=== PATIENT | female | born 1945 | race African-American/Black ===

== ENCOUNTER → 2016-10-26 | Outpatient (CLI) | payer MEDICARE ==
--- NOTE | 2016-10-26 10:58 | RAD ---
EXAM: BREAST LEFT, DIGITAL DIAGNOSTIC LT. HISTORY: Palpable lump in the far posterior left breast 6 days ago. COMPARISON: Outside mammograms 08/24/2016 and 08/17/2015. FINDINGS: Digital mammography was performed. Computer-aided detection (CAD) was utilized. CC and MLO views of the left breast were obtained. A marker was placed in the far posterior left breast at approximately 12:00, 12 cm from the nipple. Even with aggressive attempts to visualize the area of interest, only a portion of the mass is visualized. Incompletely seen is an irregular dense mass in the far posterior left breast. Mass is estimated to measure about 2 cm in maximum dimension. Given its far posterior location, it is possible that this location was not included on previous mammography. Further evaluation was performed with ultrasound. Ultrasound imaging was performed of left breast by interventional radiology technologist. Within the left breast at 11:30, 9-10 cm from nipple, there is a microlobulated, regular hypoechoic mass with internal vascularity. No convincing shadowing is identified. The mass measures 1.9 x 1.4 x 1.7 cm. Mass is adjacent to the chest wall. Additional imaging was performed of the left axilla. 2 left axillary lymph nodes are seen which are without focal cortical thickening. Maximum cortical thickness is 2 mm, within normal limits. These lymph nodes retain their fatty constantine. IMPRESSION: 1. Palpable lump corresponds to a hypoechoic, microlobulated mass with irregular margins. Mass is located adjacent to the chest wall at 11:30, 9-10 cm from the nipple; measures 1.9 x 1.4 x 1.7 cm; and demonstrates internal vascularity. Tissue diagnosis is recommended. This should be amenable to ultrasound-guided needle core biopsy. 2. A voicemail message was left with nursing staff of referring physician, Dr. Dockery, on the morning of 10/26/2016. BI-RADS CATEGORY: 4 SUSPICIOUS ABNORMALITY- BIOPSY SHOULD BE CONSIDERED RECOMMENDED FOLLOW-UP: BIO BIOPSY RECOMMENDED PQRS compliance statement: Patient information was entered into a reminder system with a target due date for the next mammogram. Mammography is a sensitive method for finding small breast cancers, but it does not detect them all and is not a substitute for careful clinical examination. A negative mammogram does not negate a clinically suspicious finding and should not result in delay in biopsying a clinically suspicious abnormality. "Our facility is accredited by the [employer] Mammography Program."
== END | disposition home or self-care (01) ==
LOC: KCIC MAMMO 09:52
PROVIDERS: ATTEND Family Medicine
DX: R92.8 Other abnormal and inconclusive findings on diagnostic imaging of breast (principal); N63 Unspecified lump in breast
CPT/HCPCS: 76641; G0206; 77051

== ENCOUNTER → 2016-11-02 | Outpatient (CLI) | payer MEDICARE ==
[~2016-11-02] VITALS: Ht 172.7 cm; Wt 71.2 kg
[~2016-11-02] MED LIST: ASPI-482 PO; CALC-584 PO; DILT120C97 PO; FISH1CAP PO; METF850T2 PO; MULT1TAB52 PO
--- NOTE | 2016-11-03 14:57 | RAD ---
Indication mass left breast suspect for malignancy. Note is made of recent diagnostic imaging, October 26, 2016, targeted to the left breast. Those examinations demonstrated a mass at the 11:30 position of the breast suspect for malignancy. Image guided biopsy was discussed with the patient. The risks of infection and bleeding were outlined. The possibility of pneumothorax was also discussed. The patient understood the risks associated with the procedure and wished to proceed. Preliminary ultrasound images were obtained. The known mass was reproduced. Lead Mechanical Engineer images were saved. The skin was prepped and draped in the routine fashion. Local anesthesia was accomplished with 1% lidocaine. A 14-gauge coaxial biopsy system was utilized. Under ultrasound guidance 4 core samples were obtained. Following the biopsy a clip was deployed within the mass. All tissue retrieved was placed in formaldehyde and transferred to pathology. Following the biopsy and clip deployment conventional mammographic images were obtained. The clip could be seen positioned within the target mass on the MLO view but the mass is very close to the chest wall and cannot be imaged imaged on the CC view. Subsequently a very limited CT examination was performed. Thin images were obtained through the mass. The clip can be seen centrally positioned in the mass on image 138 series 3. IMPRESSION: Successful ultrasound-guided biopsy mass left breast MTDD
--- NOTE | 2016-11-03 16:33 | PATHOLOGY ---
PATHOLOGY REPORT * * * * * * * * FINAL DIAGNOSIS: Breast tissue, left breast mass core biopsies: - INVASIVE HIGH GRADE DUCTAL CARCINOMA. See comment. COMMENT: Sections of the left breast mass core biopsy reveal segments of breast tissue showing an invasive high grade ductal carcinoma. The tumor shows little tubule formation, marked nuclear pleomorphism, and prominent mitotic activity. The tumor is associated with a reactive, chronically inflamed, desmoplastic stroma. The tumor measures up to 1.1 cm in greatest dimension on the glass slide. There are no tumor associated calcifications. There is no lymphovascular tumor invasion. The results are examined by Dr. Catalino Blair who concurs with the diagnosis. Breast prognostic studies will be obtained, the results of which will be reported separately. (JPM:csd; d/t: 11/03/2016) PROCEDURE REPORT (Order Date: 11/03/2016 00:00) INTERPRETATION: Quantitative image analysis was performed on block A1. Please see next page for scanned image of results. COMMENT: PATHOLOGIST: Woody Damon M.D. REPORT ELECTRONICALLY SIGNED BY: Woody Damon M.D. DATE/TIME: 11/10/2016 10:46 REPORT ELECTRONICALLY SIGNED BY: Chris Burns M.D. DATE/TIME: 11/03/2016 16:32 * * * * * * * * GROSS PATHOLOGY: Received in formalin labeled "Gissell Jean and left breast," are several needle cores of yellow-hsieh fibrofatty tissue measuring 1.8 x 0.5 x 0.3 cm in aggregate dimensions. The tissue is submitted in its entirety in cassette A1. The cold ischemic time is 5 minutes. The total formalin fixation time is 8 hours and 55 minutes. (TTL; 11/02/2016) INITIAL CPT CODE(S): A; 83883, 08789(4) Professional services performed by [facility] at [address] [address] Technical services performed by [facility] at [address] [place] [address], [address], [place] [address]. SPECIMEN(S) RECEIVED: A.Left breast mass CLINICAL HISTORY: Left breast mass PATIENT: GISSELL JEAN /AGE: 110/27/1945 (Age: 71) PATIENT #: [id number] ALT CASE #: SPECIMEN COLLECTION DATE: 11/02/2016 SPECIMEN RECEIVED DATE: 11/02/2016 [facility] - [address] [place] [address] - PHONE: [phone] * * * END OF REPORT * * *
== END | disposition home or self-care (01) ==
LOC: US 11:28
PROVIDERS: ATTEND Surgery
DX: R92.8 Other abnormal and inconclusive findings on diagnostic imaging of breast (principal); E11.9 Type 2 diabetes mellitus without complications; C50.912 Malignant neoplasm of unspecified site of left female breast
CPT/HCPCS: 19081; 71250; 76942; 88305; 88361; C1713; G0206; 77065

== ENCOUNTER → 2016-11-24 | Outpatient (CLI) | payer MEDICARE ==
--- NOTE | 2016-11-24 14:13 | RAD ---
Indication known malignancy. Assess size. Anticipated neoadjuvant chemotherapy. Targeted ultrasound of the left breast, to the known mass at the 11:30 position was performed. Comparison is made to a limited ultrasound examination 10/26/2016. Known mass persists and now measures approximately 1.74 cm x 2.3 1.6 cm which is slightly larger than on the previous exam. (Previous measurements were approximately 1.67 x 1.86 x 1.4). IMPRESSION: Known malignancy in the left breast slightly larger than on the study one month earlier
== END | disposition home or self-care (01) ==
LOC: US 15:28
PROVIDERS: ATTEND Internal Medicine Hematology & Oncology
DX: C50.912 Malignant neoplasm of unspecified site of left female breast (principal); N63 Unspecified lump in breast
CPT/HCPCS: 76641

== ENCOUNTER 2017-05-22 07:02 | Observation (INO) | payer BC ==
[~2017-05-22] VITALS: Ht 170.2 cm; Wt 73.5 kg
[2017-05-22] VITALS (8 sets, daily range): BP systolic 93–120; BP diastolic 35–61
[~2017-05-22 07:02] MED LIST changes: +DILT120C80 PO; -DILT120C97 PO; +IV RINGERS,LACTATED 1000ML 1,000 ML IV SCH; +LIDOCAINE 1% 1 ML SYRINGE. ID PRN; +ONDANSETRON PF 4 MG/2 ML VIAL. IV PRN; +PROCHLORPERAZINE 10 MG/2 ML VIAL. IV PRN
[2017-05-22] MEDS ORDERED: ISOSULFAN BLUE 50 MG/5 ML VIAL. SQ ONE (07:08)
[2017-05-22] MEDS ORDERED: PROPOFOL 20 ML IV ONE ×2 (07:34→11:39)
[2017-05-22] MEDS ORDERED: fentaNYL PF VIAL 100 MCG/2 ML VIAL ONE ×3 (07:34→12:12)
[2017-05-22] MEDS ORDERED: SUCCINYLCHOLINE 200 MG/10 ML VIAL. ONE (07:34)
[2017-05-22] MEDS ORDERED: LIDOCAINE 2% PF Vial for OR 5 ML VIAL. ONE ×2 (07:34→11:39)
[2017-05-22] MEDS ORDERED: LIDOCAINE 1% / SOD BICARB 8.4% 20 ML VIAL. IJ ONE (08:30)
[2017-05-22] MEDS ORDERED: SCOPOLAMINE 1.5MG PATCH. TD ONE (08:52)
[2017-05-22] MEDS ORDERED: DESFLURANE > 120 MINUTES IH ONE (09:17)
[2017-05-22] MEDS ORDERED: FAMOTIDINE 20 MG/2 ML VIAL ONE (09:17)
[2017-05-22] MEDS ORDERED: DEXAMETHASONE SOD PHOS 20 MG/5 ML VIAL. ONE (09:17)
[2017-05-22] MEDS ORDERED: PHENYLEPHRINE 10 MG/ML VIAL. ONE (09:31)
--- NOTE | 2017-05-22 10:03 | RAD ---
Indication established left breast malignancy. Anticipated sentinel node biopsy. Lymphoscintigraphy, in anticipation of sentinel node biopsy, was explained to the patient. The left nipple and periareolar area were cleansed. 0.9 mCi of filtered technetium sulfur colloid was injected about the left nipple at the 12, 3, 6 and 9:00 positions. No images were obtained. IMPRESSION: Lymphoscintigraphy in anticipation of sentinel node biopsy
[2017-05-22] MEDS ORDERED: ONDANSETRON PF 4 MG/2 ML VIAL. ONE (10:29)
[2017-05-22] MEDS ORDERED: PROCHLORPERAZINE 10 MG/2 ML VIAL. ONE (12:11)
--- NOTE | 2017-05-22 12:22 | PDOC4 ---
Operative Note Operative Note Operative Note: Preoperative Diagnosis: Left breast cancer Postoperative Diagnosis: Same Procedure: Left simple mastectomy with sentinel lymph node biopsy, right simple mastectomy Surgeon: Willis Supervisor [place]: Merry FUNK Anesthesia: Gen. EBL: 100 mL Specimen: Left axillary sentinel lymph node 1, 2 to pathology; left breast to pathology; right breast pathology Drains: 19 Greenlandic round Wes drain X 2 to bilateral chest wall Complications: None Indication: The patient is a 71-year-old female who was diagnosed with left breast cancer. She was placed on a clinical trial and underwent neoadjuvant chemotherapy. In discussion with her on surgical options she strongly prefers a bilateral mastectomy. In addition she is not interested in reconstruction at this time. I discussed with her the details and risks of surgery. The risks include bleeding, infection, scar tissue, pain, anesthesia risk, potential need for additional surgery or procedure. She understands and would like to proceed. Description: The patient was taken to the operating room after injection of technetium sulfur colloid in nuclear medicine. She was placed supine on the operating table. Gen. anesthesia was performed. The bilateral breasts and axilla were prepped with ChloraPrep and draped in a standard surgical manner. We began on the left side initially. Five mL of Lymphazurin were injected deep to the nipple areolar complex. Several minutes were allowed to elapse. Elliptical markings were made on both sides of the chest for the planned mastectomies. We began initially by opening the lateral superior portion of the elliptical marking on the left side. Cautery dissection was then carried down toward the axillary contents. Using the radio guided probe there was one area of moderate increased nuclear uptake in the left axilla. This did correspond to a blue staining lymph node which appeared of generous size but was soft. This lymph node was mobilized from the surrounding tissues and sent to pathology. There were no other areas of increased nuclear uptake following excision of this node. There was however an additional blue staining node which was fairly small. This was also mobilized and sent to pathology. Frozen section evaluation of both lymph nodes was negative for metastatic involvement. There were no other blue staining lymph nodes or palpable lymphadenopathy in the remaining axilla. We then proceeded with the mastectomy. With a scalpel the skin incision was made following the elliptical tracing initially on the left side. The superior and inferior flaps were both developed using cautery. The skin was from the deeper breast parenchyma. Superiorly the dissection was carried the level just below the clavicle. Inferiorly the dissection included the inframammary fold to the level of the upper torso. In a medial to lateral fashion the left breast was taken off the chest wall. Care was taken to ensure removal of the axillary tail of Mas. A stitch was used to michaela the 12 o' clock position and the left breast was sent to pathology. Hemostasis was readily achieved with cautery and the wound was packed with sterile gauze and covered with a sterile towel. We then directed our attention to the right breast. In a similar manner an elliptical incision was made at the site of her prior marking. The skin flaps were developed in a similar manner superiorly and inferiorly. The right breast was then taken off the chest wall medial to lateral fashion. A stitch michaela the 12 o'clock position and it was sent to pathology for evaluation. Hemostasis was readily achieved with cautery. 19 Greenlandic round Wes drains were placed in both sides of the chest. The drains exited inferiorly and was secured to the skin with 2-0 silk. The subcutaneous tissue of both sides was approximated with interrupted 3-0 Vicryl. The skin was then closed with a running 4-0 Monocryl suture. A sterile OpSite dressing was then applied. The patient tolerated the procedure well and was sent to the recovery room in stable condition. At the end of the case all counts were correct. ORESTES LINDSAY MD May 22, 2017 12:22
[2017-05-22] MEDS: fentaNYL PF VIAL 100 MCG/2 ML VIAL IV PRN ×4 (12:27→13:34)
[2017-05-22] MEDS ORDERED: HYDROmorphone 2 MG/ML VIAL IV PRN (12:30)
[2017-05-22] MEDS ORDERED: 0.9 % SODIUM CHLORIDE 10 ML DISP.SYRIN. IV PRN (12:30)
[2017-05-22] MEDS ORDERED: HYDROcodon/IBUPROFEN 7.5/200MG 1 TAB TABLET PO PRN (12:30)
[2017-05-22] MEDS ORDERED: ONDANSETRON PF 4 MG/2 ML VIAL. IV PRN (12:30)
[2017-05-22] MEDS: IV 1/2 NORMAL SALINE 1,000 ML IV SCH (13:00)
[2017-05-22] MEDS: metFORMIN 850 MG TABLET PO SCH (13:00)
[2017-05-22] MEDS ORDERED: PROMETHAZINE 12.5 MG in IV NORMAL SALINE 50ML 50 ML IV PRN (14:45)
[2017-05-23] MEDS: IV 1/2 NORMAL SALINE 1,000 ML IV SCH (02:57)
[2017-05-23 03:33] VITALS: BP 122/53
[2017-05-23 07:00] VITALS: BP 103/55
[2017-05-23] MEDS ORDERED: MULTIVITAMIN with MINERAL TABLET. PO SCH (09:00)
[2017-05-23] MEDS ORDERED: ASPIRIN ENTERIC COATED 81 MG TABLET.DR. PO SCH (09:00)
[2017-05-23] MEDS: metFORMIN 850 MG TABLET PO SCH (10:04)
[2017-05-23 11:00] VITALS: BP 127/60
--- NOTE | 2017-05-23 11:21 | DISCH ---
DISCHARGE INSTRUCTIONS Condition on Discharge Condition on Discharge: Stable Activity After Discharge Activity Instructions for Disc: Activity as tolerated, Avoid exertion Lifting Instructions after Dis: No heavy lifting Driving Instructions after Dis: Do not drive Diet after Discharge Diet after Discharge: Regular Wound Incision Care Wound/Incision Care: Ice to area for comfort Other wound/incision instructi: record drain outputs Follow-Up Follow up with: Office on Friday 05/25 with MARY LOU output totals DONALDO CASTELLANO MD May 23, 2017 11:21
--- NOTE | 2017-05-25 17:22 | PATHOLOGY ---
PATHOLOGY REPORT * * * * * * * * FINAL DIAGNOSIS: A. Lymph node, sentinel lymph node #1: - Negative for tumor (0/1). B. Lymph node, sentinel lymph node #2: - Negative for tumor (0/1). C. Left breast, simple mastectomy: - Previous biopsy site showing scarring, chronic inflammation, and focal hemosiderin laden macrophages-no residual invasive carcinoma identified. - Deep margin of resection negative for tumor. - No lymphovascular tumor invasion identified. - Nipple negative for tumor. - Stromal fibrosis and mild duct ectasia. D. Right breast, simple mastectomy: - Negative for tumor. - Patchy stromal fibrosis and mild duct ectasia. CLINICAL Clinical History: Other: Breast mass. Prior presurgical (neoadjuvant) therapy for this diagnosis of invasive carcinoma Radiologic Finding: Mass or architectural distortion SPECIMEN Procedure: Other: Simple mastectomy. Lymph Node Sampling: Angelica lymph node(s) Specimen Laterality: Left TUMOR Primary Tumor Site: Invasive Carcinoma: Not specified Presence of Invasive Carcinoma: No residual invasive carcinoma Ductal Carcinoma In Situ (DCIS): No DCIS is present Lobular Carcinoma In Situ (LCIS): Not identified Tumor Size / Focality: No residual invasive carcinoma Accessory Tumor Findings Lymph-Vascular Invasion: Not identified Dermal Lymph-Vascular Invasion: Not identified Microcalcifications: Not identified Treatment Effect: Response to Presurgical (Neoadjuvant) Therapy: In the Breast: No residual invasive carcinoma is present in the breast after presurgical therapy In the Lymph Nodes: No lymph node metastases and no prominent fibrous scarring in the nodes MARGINS Invasive Carcinoma: Margins uninvolved by invasive carcinoma Distance from Closest Margin: Cannot be assessed: No residual invasive carcinoma. Closest Uninvolved Margin: Cannot be determined: No residual invasive carcinoma. Ductal Carcinoma In Situ (DCIS): DCIS not present in specimen LYMPH NODES Regional Lymph Nodes: Angelica lymph node biopsy performed Number of Angelica Nodes Examined: Specify number: 2 Method of Evaluation of Angelica Lymph Node(s): Hematoxylin and eosin (H-E), one level Immunohistochemistry Number of Lymph Node(s) Examined (sentinel and nonsentinel): Specify number: 2 STAGE (PTNM) TNM Descriptors: y (post-treatment) Primary Tumor (Invasive Carcinoma) (pT): pT0: No evidence of primary tumor # Category (pN): pN0 (i-): No regional lymph node metastases histologically, negative IHC ADDITIONAL FINDINGS Additional Pathologic Findings: See diagnoses. COMMENT: Sections of the left simple mastectomy show scaring, chronic inflammation and focal hemosiderin laden macrophages in the region of the previous biopsy site. There is no residual invasive ductal carcinoma. There are two sentinel lymph nodes examined. Immunoperoxidase stains for AE1/AE3 are obtained on the sentinel lymph nodes and yield the following results. AE1/AE3 (A1): negative for tumor AE1/AE3 (B1): negative for tumor (JPM:mgr; 05/24/2017) REPORT ELECTRONICALLY SIGNED BY: Chris Burns M.D. DATE/TIME: 05/25/2017 17:21 * * * * * * * * GROSS PATHOLOGY: A. The specimen is received fresh for intraoperative consultation and is designated "sentinel lymph node #1." This consists of an ovoid shaped segment of yellow fatty tissue measuring up to 3.0 cm in length and 1.8 cm in width. There is focal bluish discoloration externally. Sectioning reveals a pinkish brown lymph node with central fatty replacement measuring up to approximately 2.2 cm in greatest dimension. There is focal bluish discoloration. This is submitted for frozen section as FSA1. The tissue remaining from frozen section is submitted for permanent sections as A1. B. The specimen is received fresh for intraoperative consultation and is designated "sentinel lymph node #2." This consists of an ovoid shaped segment of yellow fatty tissue measuring up to 2.1 cm in greatest dimension. Sectioning reveals an eccentric yellowish appearing lymph node showing focal bluish discoloration. This is submitted for frozen section as FSB1. The tissue remaining from frozen section is submitted for permanent sections as B1. (JPM:mgr; 05/22/2017) C. The specimen is received in formalin, labeled "Gissell Jean, left breast stitch at 12:00" is a simple mastectomy specimen consisting of an ellipse of skin containing nipple/areolar complex and underlying breast tissue. The specimen weighs 987 g and measures 23.6 x 20.7 x 5.8 cm. A freely movable nipple is identified measuring 1.2 x 1.0 x 0.3 cm. Surrounding the nipple is an areola measuring 4.5 cm in diameter. The structures are centered in a gibbons-brown ellipse of skin measuring 20.1-11.1 cm. Centered along the upper edge is a black suture designating the 12 o'clock position. Along the lateral aspect of the areole, the skin has been previously injected with a blue-green ink. Prior to sectioning the anterior surface is inked blue and the deep surface is inked black. Sectioning reveals an irregular area of scarring and puckering in the upper outer quadrant measuring 2.0 x 1.6 x 0.8 cm. This area extends to within 0.2 cm of the deep inked margin. The parenchyma in this area of scarring has a granular, vaguely nodular appearance. The remaining cut surface is 70% gibbons-yellow lobulated adipose tissue and 30% hsieh-white fibrous breast parenchyma. The center of the breast parenchyma has been injected with a blue-green ink. No additional abnormalities are identified. No distinct nodules/lymph nodes are noted attached to the upper outer quadrant. [employer] Libr[employer] sections are submitted as follows C1 - nipple C2-C3 previous biopsy site C4 - upper inner quadrant C5 - lower inner quadrant C6 - lower outer quadrant C7 - upper outer quadrant D. The specimen is received in formalin, labeled "Gissell Jean, right breast stitch at 12:00" is a simple mastectomy specimen consisting of a skin ellipse containing nipple and areolar complex and underlying breast tissue. The specimen weighs 964 g and measures 21.6 x 18.7 x 5.1 cm. A freely movable, gibbons-brown nipple is noted measuring 1.4 x 1.0 x 0.5 cm. Surrounding the nipple is an areola measuring 4.0 cm in maximum diameter. The structures are centered on a gibbons-brown, wrinkled, rubbery skin ellipse measuring 19.5 x 8.5 cm. Several pigmented macules are noted ranging from 0.3-0.8 cm. No additional abnormalities are noted. Prior to sectioning anterior surfaces inked blue and the deep surface is inked black. The cut surface is 80% gibbons-yellow lobulated adipose tissue and 20% hsieh-white fibrous breast parenchyma. No mass lesions or cystic structures are noted on the cut surface. No nodules/lymph nodes are noted attached to the upper outer quadrant. [employer] sections are submitted as follows: D1 - nipple D2 - upper inner quadrant D3 - lower inner quadrant D4 - lower outer quadrant D5 - upper outer quadrant. (JWP; 05/23/2017) FROZEN SECTION DIAGNOSIS: (Geetha Burns M.D.) FSA1, sentinel lymph node #1: - Negative for tumor. The results are reported to Dr. Pedro in the operating room. FSB1, sentinel lymph node #2: - Negative for tumor. The results are reported to Dr. Pedro in the operating room. (JPM:mgr; 05/22/2017) Testing performed by [facility] [place] [address] INITIAL CPT CODE(S): A; 55259, 93907, 46659 B; 96937, 22321, 62327 C; 92669 D; 99532 Professional services performed by [facility] [place] [address] Technical services performed by [facility] at [address] [place] [address], [facility] [address] [address]. SPECIMEN(S) RECEIVED: A.Angelica lymph node #1 B.Angelica lymph node #2 C.Left breast D.Right breast CLINICAL HISTORY: Left breast mass, history of left breast cancer PATIENT: GISSELL JEAN /AGE: 110/27/1945 (Age: 71) PATIENT #: [id number] ALT CASE #: SPECIMEN COLLECTION DATE: 05/22/2017 SPECIMEN RECEIVED DATE: 05/22/2017 [facility] - [address] [place] [address] - PHONE: [phone] * * * END OF REPORT * * *
== END 2017-05-23 14:03 | disposition home or self-care (01) ==
LOC: SURG 07:02 → 4 NORTH 12:35
PROVIDERS: ADMIT Surgery; ATTEND Surgery
DX: C50.912 Malignant neoplasm of unspecified site of left female breast (principal)
CPT/HCPCS: 19303; 38792; 82962; 96365; 96375; A9541; C1769; G0378; G0379; J0330; J0780; J1100; J1170; J1956; J2001; J2405; J2550; J2704; J3010; J7120; Q9968; S0028; 96374

== ENCOUNTER → 2020-07-28 | Outpatient (CLI) | payer BC ==
[~2020-07-28] MED LIST changes: -DILT120C80 PO; +DILT120C99 PO; -IV RINGERS,LACTATED 1000ML 1,000 ML IV SCH; -LIDOCAINE 1% 1 ML SYRINGE. ID PRN; -METF850T2 PO; +METF850T8 PO; +MULT-445 PO; -MULT1TAB52 PO; -ONDANSETRON PF 4 MG/2 ML VIAL. IV PRN; -PROCHLORPERAZINE 10 MG/2 ML VIAL. IV PRN
--- NOTE | 2020-07-28 16:05 | KCIC ---
2 views of the orbits without comparison for MRI screening, prior scleral buckle placement. FINDINGS: No metallic or radiopaque foreign bodies are identified. No significant osseous abnormalities. IMPRESSION: 1. No radiographically discernible foreign bodies. Electronically signed by: Lm Trevizo MD (07/28/2020 4:02 PM) [id number]
--- NOTE | 2020-07-29 08:49 | KCIC ---
EXAM: MRI right shoulder DATE: 07/28/2020 2:00 PM COMPARISON: None INDICATION: Reason: RIGHT SHOULDER PAIN-Right shoulder pain after a strain one month ago. RUE numbness. TECHNIQUE: Multiplanar, multisequence MRI of the right shoulder was performed without contrast. FINDINGS: AC joint degenerative changes are seen with small inferior projecting osteophytes. Mild lateral downsloping of the distal acromion. Os acromiale is seen with associated edema and cystic change at the interface. Subacromial-subdeltoid bursal fluid from rotator cuff tear described below. Small joint bodies and synovitis are seen within the subacromial-subdeltoid bursa. No shoulder joint effusion. There is a high-grade partial to full-thickness tear of the anterior fibers of the supraspinatus tendon measuring 1.1 cm in AP dimension. This extends posteriorly as a partial-thickness bursal sided tear measuring 7 mm in AP dimension. Full-thickness, partial width tear of the superior fibers of the subscapularis tendon with associated medial subluxation of the long head biceps tendon suggesting transverse ligament disruption at the level of the lesser tuberosity. Mild fatty atrophy of the subscapularis muscle belly. Long head biceps tendinosis. No discrete labral tear is seen. No evidence for acute fracture or osteonecrosis. Regions of chondral thinning within the superior humeral head. IMPRESSION: 1. Full-thickness tear of the supraspinatus tendon anteriorly extends posteriorly as a partial-thickness bursal sided tear. 2. Full-thickness, partial width subscapularis tear with disruption of the transverse ligament resulting in medial subluxation of the long head biceps tendon. Associated biceps tendinosis. 3. Subacromial-subdeltoid bursal fluid distention from rotator cuff tear containing several joint bodies. 4. Right shoulder joint osteoarthritis. 5. 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 Edema/cystic change at the os acromiale interface likely symptomatic. Electronically signed by: Gregg Huffman MD (07/29/2020 8:46 AM) [id number]
== END ==
LOC: KCIC MRI 13:44
PROVIDERS: ATTEND Orthopaedic Surgery
DX: M75.121 Complete rotator cuff tear or rupture of right shoulder, not specified as traumatic (principal); M75.101 Unspecified rotator cuff tear or rupture of right shoulder, not specified as traumatic; M19.011 Primary osteoarthritis, right shoulder
CPT/HCPCS: 70030; 73221